=== PATIENT | male | born 1950 | race Two or more races ===

== ENCOUNTER 2023-07-05 11:00 | Inpatient (IN) | payer OTHER ==
[~2023-07-05] VITALS: Ht 177.8 cm; Wt 88.9 kg
[2023-07-05] MEDS ORDERED: CIALIS5 MG (13:38)
[2023-07-05] MEDS ORDERED: LOSARTAN POTASS50 MG (13:38)
[2023-07-05] MEDS ORDERED: GLUMETZA500 MG (13:38)
[2023-07-05] MEDS ORDERED: FINASTERIDE5 MG (13:38)
[2023-07-05] MEDS ORDERED: TAMS0.4C (13:39)
[2023-07-12] MEDS ORDERED: BUPIVACAINE HCL/PF 0.5% 30ML ML ONE (08:15)
[2023-07-12] MEDS ORDERED: BUPIVACAINE HCL/PF 0.5% 30ML ML IJ ONE (09:00)
[2023-07-12] MEDS ORDERED: ENOXAPARIN SODIUM 40 MG/0.4 ML SYRINGE SUBCUTANEO ONE (09:00)
[2023-07-12] MEDS ORDERED: CEFAZOLIN SODIUM 1,000 MG VIAL IV ONE (09:00)
[2023-07-12] MEDS ORDERED: HEMOSTATIC MATRIX 1 KIT KIT TOP ONE (11:30)
[2023-07-12] MEDS ORDERED: SURGIFLO APPLICATOR 1 EACH APPL TOP ONE (11:30)
[2023-07-12] MEDS ORDERED: SUGAMMADEX SODIUM 200 MG/2 ML VIAL IV ONE ×2 (12:39→13:30)
[2023-07-12] MEDS ORDERED: RINGERS SOLUTION,LACTATED 1,000 ML IV SCH (13:30)
[2023-07-12] MEDS ORDERED: ONDANSETRON HCL 2 MG/ML VIAL IV PRN (13:30)
[2023-07-12] MEDS ORDERED: INSULIN LISPRO 1,000 UNIT/10 ML UNITS SUBCUTANEO PRN (13:30)
[2023-07-12] MEDS ORDERED: DEXTROSE 50 % IN WATER 0.5 G/ML DISP.SYRIN IV PRN (13:30)
[2023-07-12] MEDS ORDERED: OxyCODONE HCL/APAP UD (PERCOCET) PO PRN (13:30)
[2023-07-12] MEDS ORDERED: GABAPENTIN 300 MG CAPSULE PO SCH (17:00)
[2023-07-12] MEDS ORDERED: KETOROLAC TROMETHAMINE 30 MG VIAL IM SCH (18:00)
[2023-07-12] MEDS ORDERED: CEFAZOLIN SODIUM 1,000 MG VIAL IV SCH (18:00)
[2023-07-12] MEDS ORDERED: FAMOTIDINE/PF 20 MG/2 ML VIAL IV SCH (21:00)
[2023-07-13 07:52] LABS: HEMATOCRIT 34.4 % (39.0-48.0); HEMOGLOBIN 11.6 g/dL (13-16.00); MEAN CELL VOLUME 88.7 fL (80.0-100.00); MEAN CORPUSCULAR HEMOGLOBIN 30.1 pg (27.00-32.0); MEAN CORPUSCULAR HGB CONC 33.9 g/dl (32.0-36.0); PLATELET COUNT 228 K/uL (150-450); RED BLOOD COUNT 3.87 M/uL (4.00-6.00); RED CELL DISTRIBUTION WIDTH 14.4 % (11.5-14.5)
[2023-07-13 08:27] LABS: ALBUMIN 2.9 gm/dL (3.4-5.0); CALCIUM 8.2 mg/dL (8.5-10.1); CREATININE SERUM 0.76 mg/dL (0.70-1.30); GFR 100.82; PHOSPHOROUS 4.3 mg/dL (2.5-4.9); POTASSIUM 4.52 mEq/L (3.5-5.1)
[2023-07-13] MEDS ORDERED: DOCUSATE SODIUM 100MG CAP PO SCH (09:00)
[2023-07-13] MEDS ORDERED: LOSARTAN POTASSIUM 50 MG TABLET PO SCH (09:00)
[2023-07-13] MEDS ORDERED: ENOXAPARIN SODIUM 40 MG/0.4 ML SYRINGE SUBCUTANEO SCH (17:00)
== END 2023-07-13 11:32 | disposition home or self-care (01) | DRG 708 ==
LOC: ADM 11:00 → O/R 07-12 06:41 → SURH 07-12 06:41 → CIR.AMB 07-12 07:00 → EDSTATUS 07-12 11:00 → SURH 07-12 11:00
PROVIDERS: ADMIT Urology; ATTEND Urology
PROC: 8E0W0CZ Robotic Assisted Procedure of Trunk Region, Open Approach (ICD-10-PCS; 2023-07-12)
PROC: 0VT00ZZ Resection of Prostate, Open Approach (ICD-10-PCS; principal; 2023-07-12 07:00)
DX: C61 Malignant neoplasm of prostate (principal); Z20.822 Contact with and (suspected) exposure to COVID-19
CPT/HCPCS: 55866; S2900